=== PATIENT | female | born 1965 | race Native Hawaiian/Other Pacific Islander ===

== ENCOUNTER 2018-05-09 11:02 | Emergency (ER) | payer OTHER ==
--- NOTE | 2018-05-09 11:06 | Emergency Department Report ---
Blank Doc - Documentation Documentation: This is a 53-year-old female that presents with right lower abdominal pain with nausea x1 day. Denies any vomiting. This initial assessment/diagnostic orders/clinical plan/treatment(s) is/are subject to change based on patient's health status, clinical progression and re-assessment by fellow clinical providers in the ED. Further treatment and workup at subsequent clinical providers discretion. Patient/guardians urged not to elope from the ED as their condition may be serious if not clinically assessed and managed. Initial orders include: 1- Patient sent to [facility] for further evaluation and treatment 2- labs 3- ua
[2018-05-09 11:14] VITALS: BP 153/85
[2018-05-09 11:34] LABS: Basophils % (Auto) 0.3 % (0.0-1.8); Eosinophils # (Auto) 0.1 K/mm3 (0.0-0.4); Eosinophils % (Auto) 1.4 % (0.0-4.3); Hematocrit 33.6 % (30.3-42.9); Lymphocytes # (Auto) 1.7 K/mm3 (1.2-5.4); Lymphocytes % (Auto) 37.3 % (13.4-35.0); Mean Corpuscular HGB Conc 33 % (30-34); Mean Corpuscular Volume 75 fl (79-97); Monocytes # (Auto) 0.3 K/mm3 (0.0-0.8); Monocytes % (Auto) 7.3 % (0.0-7.3); Platelet Count 392 K/mm3 (140-440); Red Blood Count 4.46 M/mm3 (3.65-5.03); Red Cell Distribution Width 17.9 % (13.2-15.2)
[2018-05-09 11:55] LABS: Alanine Aminotransferase 57 units/L (7-56); BUN/Creatinine Ratio 35; Bilirubin,Direct < 0.2 mg/dL (0-0.2); Blood Urea Nitrogen 21 mg/dL (7-17); Calcium 9.8 mg/dL (8.4-10.2); Hemolysis Index 6
[2018-05-09 12:05] LABS: Bilirubin,Urine NEG (Negative); Blood,Urine NEG (Negative); Color,Urine Yellow (Yellow); Mucus,Urine FEW /HPF; Protein,Urine <15 mg/dL mg/dL (Negative); Urobilinogen,Urine < 2.0 mg/dL (<2.0)
--- NOTE | 2018-05-09 12:11 | XRay Report ---
LEFT ELBOW, 3 views: History: left elbow pain. Transverse fracture through the radial neck is identified with minimal displacement. No obvious extension of fracture line the radial head is identified. The proximal ulna and distal humerus are intact. No joint pathology is appreciated. There is however a 2 mm calcification which may be within the joint space on the lateral image. A moderate joint effusion is identified. IMPRESSION: Left radial neck fracture.
[2018-05-09] MEDS ORDERED: NORCO 5/325 PO ONE (12:32)
--- NOTE | 2018-05-09 12:42 | Emergency Department Report ---
ED Fall HPI - General Chief Complaint: Abdominal Pain Stated Complaint: LFT HAND INJURY/STOMACH PAIN Time Seen by Provider: 05/09/18 11:04 Source: patient Mode of arrival: Ambulatory - History of Present Illness MD Complaint: fall -: Last night Fall From: standing Place Fall Occurred: home Loss of Consciousness: none Prolonged Down Time?: no, yes Location - Extremities: Left: Elbow, Forearm Severity: moderate Quality: sharp Context: tripped/slipped Associated Symptoms: abdominal pain - Related Data Previous Rx's Medication Instructions Recorded Last Taken Type Famotidine 20 mg PO BID 10 Days #20 tablet 05/09/18 Unknown Rx HYDROcodone/APAP 5-325 [[place] 1 each PO Q6HR PRN #15 tablet 05/09/18 Unknown Rx 5/325] Allergies Allergy/AdvReac Type Severity Reaction Status Date / Time Penicillins Allergy Hives Verified 05/09/18 11:05 Sulfa (Sulfonamide Allergy Hives Verified 05/09/18 11:05 Antibiotics) ED Review of Systems ROS: Stated complaint: LFT HAND INJURY/STOMACH PAIN Other details as noted in HPI Comment: All other systems reviewed and negative Constitutional: denies: fever, malaise Respiratory: denies: cough Cardiovascular: denies: chest pain ED Past Medical Hx - Past Medical History Previous Medical History?: No - Surgical History Past Surgical History?: Yes Hx Cholecystectomy: Yes - Social History Smoking Status: Never Smoker Substance Use Type: None - Medications Home Medications: Home Medications Medication Instructions Recorded Confirmed Last Taken Type Famotidine 20 mg PO BID 10 Days #20 tablet 05/09/18 Unknown Rx HYDROcodone/APAP 5-325 [[place] 1 each PO Q6HR PRN #15 tablet 05/09/18 Unknown Rx 5/325] ED Physical Exam - General Limitations: No Limitations General appearance: alert, in no apparent distress - Head Head exam: Present: atraumatic, normocephalic - Eye Eye exam: Present: normal appearance - ENT ENT exam: Present: mucous membranes moist - Neck Neck exam: Present: normal inspection - Respiratory Respiratory exam: Present: normal lung sounds bilaterally. Absent: respiratory distress, wheezes, rales - Cardiovascular Cardiovascular Exam: Present: regular rate, normal rhythm, normal heart sounds. Absent: systolic murmur, diastolic murmur, rubs, gallop - GI/Abdominal GI/Abdominal exam: Present: soft, normal bowel sounds. Absent: distended, tenderness, guarding, rebound - Extremities Exam Extremities exam: Present: normal inspection, full ROM, tenderness (left elbow), other (soft forearm compartments) - Back Exam Back exam: Present: normal inspection - Neurological Exam Neurological exam: Present: alert, oriented X3 - Psychiatric Psychiatric exam: Present: normal affect, normal mood - Skin Skin exam: Present: warm, dry, intact, normal color. Absent: rash ED Course Vital Signs 05/09/18 11:11 Temperature 97.8 F Pulse Rate 78 Respiratory 16 Rate Blood Pressure 153/85 Blood Pressure 153/85 [Left] O2 Sat by Pulse 99 Oximetry ED Medical Decision Making - Lab Data Result diagrams: 05/09/18 11:14 05/09/18 11:14 Laboratory Results - last 72 hr 05/09/18 05/09/18 05/09/18 11:14 11:14 11:27 WBC 4.6 RBC 4.46 Hgb 11.0 Hct 33.6 MCV 75 L MCH 25 L MCHC 33 RDW 17.9 H Plt Count 392 Lymph % (Auto) 37.3 H [place] % (Auto) 7.3 Eos % (Auto) 1.4 Baso % (Auto) 0.3 Lymph # 1.7 [place] # 0.3 Eos # 0.1 Baso # 0.0 Seg Neutrophils % 53.7 Seg Neutrophils # 2.5 Sodium 139 Potassium 3.5 L Chloride 100.9 Carbon Dioxide 28 Anion Gap 14 BUN 21 H Creatinine 0.6 L Estimated GFR > 60 BUN/Creatinine Ratio 35 Glucose 96 Calcium 9.8 Total Bilirubin 0.20 Direct Bilirubin < 0.2 AST 25 ALT 57 H Alkaline Phosphatase 102 Total Protein 8.1 Albumin 4.0 Albumin/Globulin Ratio 1.0 Lipase 55 Urine Color Yellow Urine Turbidity Clear Urine pH 6.0 Ur Specific [place] 1.020 Urine Protein <15 mg/dl Urine Glucose (UA) Neg Urine Ketones Neg Urine Blood Neg Urine Nitrite Neg Urine Bilirubin Neg Urine Urobilinogen < 2.0 Ur Leukocyte Esterase Tr Urine WBC (Auto) 2.0 Urine RBC (Auto) 1.0 U Epithel Cells (Auto) 9.0 Urine Mucus Few - Medical Decision Making 1. fall at home, Left radial neck fracture according to my review of images and radiology report, no displacement, should do well with sling provided, rx: norco, recommended orthopedic surgery f/u one week 2. abdominal pain epigastric with n/v/d DDX: PUD, gastroenteritis, with hx of cholecystectomy biliary colic not likely, do not suspect ACS from today's presentation rx: pepcid Labs reviewed within normal limits. Critical care attestation.: If time is entered above; I have spent that time in minutes in the direct care of this critically ill patient, excluding procedure time. ED Disposition Clinical Impression: Fracture of radial neck, left, closed, Epigastric abdominal pain Disposition: TO HOME OR SELFCARE Is pt being admited?: No Does the pt Need Aspirin: No Condition: Stable Instructions: Abdominal Pain (ED), Elbow Fracture in Adults (ED) Additional Instructions: You have an elbow fracture called a radial neck fracture which is treated with a sling. Prescriptions: Famotidine 20 mg PO BID 10 Days #20 tablet HYDROcodone/APAP 5-325 [[place] 5/325] 1 each PO Q6HR PRN #15 tablet PRN Reason: Pain Referrals: JOSE VERONICA MD [Staff Physician] - 3-5 Days Print Language: CYPRIOT
== END 2018-05-09 13:11 | disposition home or self-care (01) ==
LOC: ED 11:02
DX: S52.132A Displaced fracture of neck of left radius, initial encounter for closed fracture (principal); R10.13 Epigastric pain; Z90.49 Acquired absence of other specified parts of digestive tract; Z88.0 Allergy status to penicillin; Z88.2 Allergy status to sulfonamides; W01.0XXA Fall on same level from slipping, tripping and stumbling without subsequent striking against object, initial encounter; Y93.89 Activity, other specified; Y92.009 Unspecified place in unspecified non-institutional (private) residence as the place of occurrence of the external cause; Y99.8 Other external cause status
CPT/HCPCS: 36415; 80048; 80076; 81001; 83690; 85025

== ENCOUNTER 2018-05-19 22:56 | Emergency (ER) | payer OTHER ==
[2018-05-19 23:38] LABS: Basophils % (Auto) 0.2 % (0.0-1.8); Eosinophils % (Auto) 0.8 % (0.0-4.3); Hematocrit 34.8 % (30.3-42.9); Hemoglobin 11.1 gm/dl (10.1-14.3); Lymphocytes # (Auto) 1.4 K/mm3 (1.2-5.4); Mean Corpuscular HGB Conc 32 % (30-34); Mean Corpuscular Volume 76 fl (79-97); Monocytes # (Auto) 0.3 K/mm3 (0.0-0.8); Monocytes % (Auto) 5.8 % (0.0-7.3); Platelet Count 443 K/mm3 (140-440); Red Blood Count 4.57 M/mm3 (3.65-5.03); Red Cell Distribution Width 17.9 % (13.2-15.2)
[2018-05-19 23:58] LABS: Alanine Aminotransferase 30 units/L (7-56); Albumin 3.8 g/dL (3.9-5); BUN/Creatinine Ratio 27; Blood Urea Nitrogen 19 mg/dL (7-17); Calcium 9.5 mg/dL (8.4-10.2); Hemolysis Index 5
[2018-05-20] MEDS ORDERED: DECADRON PO ONE (01:35)
[2018-05-20] MEDS ORDERED: CLEOCIN IM STA (01:37)
--- NOTE | 2018-05-20 02:51 | Emergency Department Report ---
- General Chief Complaint: Nausea/Vomiting/Diarrhea Stated Complaint: CHEST PAIN NVD Time Seen by Provider: 05/20/18 00:46 Source: patient Mode of arrival: Ambulatory Limitations: No Limitations - History of Present Illness MD Complaint: cough, sore throat, rhinorrhea, nasal congestion -: Gradual, days(s) (3) Quality: dull, aching Consistency: constant Improves With: nothing Worsens With: nothing Context: sick contacts Associated Symptoms: chills, myalgias, rhinorrhea, nasal congestion, sore throat, cough. denies: stiff neck, diarrhea, dysuria, rash, confusion, right sweats, weight loss, epistaxis, hoarseness - Related Data Previous Rx's Medication Instructions Recorded Last Taken Type Famotidine 20 mg PO BID 10 Days #20 tablet 05/09/18 Unknown Rx HYDROcodone/APAP 5-325 [[place] 1 each PO Q6HR PRN #15 tablet 05/09/18 Unknown Rx 5/325] Chlorhexidine Mouthwash [Peridex] 15 ml MM BID #473 bottle 05/20/18 Unknown Rx Clindamycin HCl [Clindamycin Oral] 75 mg PO TID #30 capsule 05/20/18 Unknown Rx guaiFENesin/CODEINE [Robitussin AC] 5 ml PO Q6H PRN #120 ml 05/20/18 Unknown Rx Allergies Allergy/AdvReac Type Severity Reaction Status Date / Time Penicillins Allergy Hives Verified 05/09/18 11:05 Sulfa (Sulfonamide Allergy Hives Verified 05/09/18 11:05 Antibiotics) ED Review of Systems ROS: Stated complaint: CHEST PAIN NVD Other details as noted in HPI Constitutional: denies: chills, fever Eyes: denies: eye pain, eye discharge, vision change ENT: throat pain. denies: ear pain Respiratory: cough. denies: shortness of breath, wheezing Cardiovascular: denies: chest pain, palpitations Endocrine: no symptoms reported Gastrointestinal: denies: abdominal pain, nausea, diarrhea Genitourinary: denies: urgency, dysuria, discharge Musculoskeletal: denies: back pain, joint swelling, arthralgia Skin: denies: rash, lesions Neurological: denies: headache, weakness, paresthesias Psychiatric: denies: anxiety, depression Hematological/Lymphatic: denies: easy bleeding, easy bruising ED Past Medical Hx - Past Medical History Hx Hypertension: Yes - Surgical History Hx Cholecystectomy: Yes Additional Surgical History: C-sections X10. - Social History Smoking Status: Never Smoker Substance Use Type: None - Medications Home Medications: Home Medications Medication Instructions Recorded Confirmed Last Taken Type Famotidine 20 mg PO BID 10 Days #20 tablet 05/09/18 Unknown Rx HYDROcodone/APAP 5-325 [[place] 1 each PO Q6HR PRN #15 tablet 05/09/18 Unknown Rx 5/325] Chlorhexidine Mouthwash [Peridex] 15 ml MM BID #473 bottle 05/20/18 Unknown Rx Clindamycin HCl [Clindamycin Oral] 75 mg PO TID #30 capsule 05/20/18 Unknown Rx guaiFENesin/CODEINE [Robitussin AC] 5 ml PO Q6H PRN #120 ml 05/20/18 Unknown Rx ED Physical Exam - General Limitations: No Limitations General appearance: alert, in no apparent distress - Head Head exam: Present: atraumatic, normocephalic - Eye Eye exam: Present: normal appearance, EOMI Pupils: Present: normal accommodation - ENT ENT exam: Present: normal exam, mucous membranes moist, other (current extremity is swollen with exudate noted. Bilateral nasal congestion with some sinus tenderness to percussion. There is some lymphadenopathy noted to the right side.) - Neck Neck exam: Present: normal inspection, tenderness, lymphadenopathy - Respiratory Respiratory exam: Present: normal lung sounds bilaterally. Absent: respiratory distress - Cardiovascular Cardiovascular Exam: Present: regular rate, normal rhythm. Absent: systolic murmur, diastolic murmur, rubs, gallop - GI/Abdominal GI/Abdominal exam: Present: soft, normal bowel sounds - Extremities Exam Extremities exam: Present: normal inspection, full ROM, normal capillary refill - Back Exam Back exam: Present: normal inspection, full ROM. Absent: CVA tenderness (R), CVA tenderness (L), muscle spasm - Neurological Exam Neurological exam: Present: alert, oriented X3 - Psychiatric Psychiatric exam: Present: normal affect, normal mood - Skin Skin exam: Present: warm, dry, intact, normal color. Absent: rash ED Course Vital Signs 05/19/18 05/19/18 23:02 23:09 Temperature 97.8 F 97.8 F Pulse Rate 92 H 85 Respiratory 18 18 Rate Blood Pressure 153/96 153/96 O2 Sat by Pulse 99 100 Oximetry ED Medical Decision Making - Lab Data Result diagrams: 05/19/18 23:25 05/19/18 23:25 Critical care attestation.: If time is entered above; I have spent that time in minutes in the direct care of this critically ill patient, excluding procedure time. ED Disposition Clinical Impression: Myalgia, Pharyngitis Disposition: DC-01 TO HOME OR SELFCARE Is pt being admited?: No Does the pt Need Aspirin: No Condition: Stable Instructions: Pharyngitis (ED) Prescriptions: Clindamycin HCl [Clindamycin Oral] 75 mg PO TID #30 capsule Chlorhexidine Mouthwash [Peridex] 15 ml MM BID #473 bottle guaiFENesin/CODEINE [Robitussin AC] 5 ml PO Q6H PRN #120 ml PRN Reason: Cough Referrals: FRITZ PENNY MD [Primary Care Provider] - 3-5 Days
[2018-05-20] MEDS ORDERED: IBUPROFEN PO ONE (03:06)
[2018-05-20] MEDS ORDERED: IBUPROFEN ONE (03:08)
[2018-05-20 03:41] VITALS: BP 140/77
== END 2018-05-20 03:11 | disposition home or self-care (01) ==
LOC: ED 22:56
DX: J02.9 Acute pharyngitis, unspecified (principal); M79.18 Myalgia, other site; I10 Essential (primary) hypertension; Z90.49 Acquired absence of other specified parts of digestive tract; Z88.0 Allergy status to penicillin; Z88.2 Allergy status to sulfonamides
CPT/HCPCS: 36415; 80053; 85025; 96372; 99283; J1100

== ENCOUNTER 2018-07-15 23:01 | Emergency (ER) | payer OTHER ==
[2018-07-15 23:08] VITALS: BP 150/83
--- NOTE | 2018-07-16 03:35 | Emergency Department Report ---
ED Rash HPI - HPI Chief Complaint: Skin Rash Stated Complaint: ALLERGIC REACTION Time Seen by Provider: 07/16/18 03:00 Duration: 1 WEEK Location: Chest Suspected Cause: Unknown Rash Symptoms: Yes Itching, No Facial Swelling, No Tongue/Oral Swelling, No Breathing Difficulties, No Choking Sensation, No Wheezing/Dyspnea, No Peeling, No Blistering, No Fever, No Lightheaded, No Malaise, No Myalgias Severity: moderate Other History: Patient is a 53-year-old female with a history of hypertension who presents to the ED with complaint of acute onset persistent itchy erythematous maculopapular rash on the chest wall under the breasts for the last 1 week. Patient states that the rash is status pending was her abd omen. Patient states that the itching, burning sensation and pain have worsened in the last 2 days. Patient denies fever, chills, nausea, vomiting, dizziness, abdominal pain, headache or cough. ED Review of Systems ROS: Stated complaint: ALLERGIC REACTION Other details as noted in HPI Comment: All other systems reviewed and negative Constitutional: no symptoms reported, see HPI. denies: diaphoresis, fever, malaise Eyes: denies: eye discharge, vision change ENT: denies: dental pain, hearing loss Respiratory: see HPI. denies: no symptoms reported, cough, orthopnea, shortness of breath, SOB with exertion, SOB at rest Cardiovascular: as per HPI. denies: chest pain, orthopnea, edema, syncope Endocrine: no symptoms reported, see HPI. denies: excessive sweating, flushing, intolerance to cold, intolerance to heat, increased hunger, increased thirst, increased urine, unexplained weight loss Gastrointestinal: as per HPI. denies: abdominal pain, nausea, vomiting, diarrhea, constipation, melena Genitourinary: as per HPI. denies: urgency, dysuria, frequency, hematuria, discharge Musculoskeletal: as per HPI. denies: back pain Skin: rash (Erythematous maculopapular rashes on chest wall below the breasts), change in color, pruritus Neurological: as per HPI. denies: headache, weakness, numbness, paresthesias, confusion, abnormal gait, vertigo Psychiatric: as per HPI Hematological/Lymphatic: as per HPI ED Past Medical Hx - Past Medical History Previous Medical History?: Yes Hx Hypertension: Yes - Surgical History Past Surgical History?: Yes Hx Cholecystectomy: Yes Additional Surgical History: C-sections X10. - Social History Smoking Status: Never Smoker Substance Use Type: None - Medications Home Medications: Home Medications Medication Instructions Recorded Confirmed Last Taken Type Famotidine 20 mg PO BID 10 Days #20 tablet 05/09/18 Unknown Rx HYDROcodone/APAP 5-325 [[place] 1 each PO Q6HR PRN #15 tablet 05/09/18 Unknown Rx 5/325] Chlorhexidine Mouthwash [Peridex] 15 ml MM BID #473 bottle 05/20/18 Unknown Rx Clindamycin HCl [Clindamycin Oral] 75 mg PO TID #30 capsule 05/20/18 Unknown Rx guaiFENesin/CODEINE [Robitussin AC] 5 ml PO Q6H PRN #120 ml 05/20/18 Unknown Rx Griseofulvin Ultramicrosize 250 mg PO DAILY #14 tablet 07/16/18 Unknown Rx Ibuprofen [Motrin] 600 mg PO Q8H PRN #20 tablet 07/16/18 Unknown Rx Nystatin Oint [Mycostatin Oint] 1 applicatio TP BID #1 tube 07/16/18 Unknown Rx diphenhydrAMINE [Benadryl CAP] 25 mg PO Q6HR PRN #30 capsule 07/16/18 Unknown Rx Rash Exam - Exam General: Vital signs noted. No distress. Alert and acting appropriately. HEENT: No Periorbital Edema, No Conjuctival Injection, No Chemosis, No Perioral Edema, No Tongue Edema, No Uvular Edema, No Compromised Airway, No Drooling Lungs: Yes Good Air Exchange, No Wheezes, No [place], No Stridor, No Cough, No Labored Respirations, No Retractions, No Use of Accessory Muscles, No Other Abnormal Lung Sounds Heart: Yes Regular, No Murmur Skin: Yes Maculopapular Rash (anterior chest wall below the breasts), Yes Tenderness, Yes Erythema, No Urticarial Rash, No Morbilliform rash, No Bulla(e), No Excoriations, No Weeping, No Edema, No Encrustations, No Other Other: Positive: Abdomen Normal, Neurologic Normal, Musculoskeletal Normal ED Course Vital Signs 07/15/18 07/15/18 23:04 23:08 Temperature 97.7 F 97.7 F Pulse Rate 80 78 Respiratory 18 18 Rate Blood Pressure 150/83 150/83 O2 Sat by Pulse 99 99 Oximetry - Reevaluation(s) Reevaluation #1: 07/16/18 03:37 Patient is alert and oriented 3 and is not in distress with normal vital signs. Patient was discharged home on medications and advised to follow-up with her primary care physician in 7-10 days for reevaluation. Patient advised to return to the ED immediately if symptoms get worse or if she developed severe right upper quadrant pain. ED Medical Decision Making - Medical Decision Making Patient is alert and oriented 3 and is not in distress with normal vital signs. Based on the physical exam findings, the patient's symptoms are likely due to tinea corporis which has been causing the itching and is currently spreading aggressively. Patient was discharged home on medications and advised to follow- up with her primary care physician in 7-10 days for reevaluation. Patient advised to return to the ED immediately if symptoms get worse or if she developed severe right upper quadrant pain. - Differential Diagnosis Tinea corporis, Itching, dermatitis, allergic reaction, cellulitis Critical care attestation.: If time is entered above; I have spent that time in minutes in the direct care of this critically ill patient, excluding procedure time. ED Disposition Clinical Impression: Tinea corporis, Itching with irritation Disposition: DC-01 TO HOME OR SELFCARE Is pt being admited?: No Does the pt Need Aspirin: No Condition: Stable Instructions: Tinea Corporis (ED), Itchy Skin (ED) Additional Instructions: Take medications with food, drink plenty of fluids and follow up with your primary care physician in 7-10 days for reevaluation. Return to the ED immediately if symptoms get worse, especially if you develop severe right upper quadrant abdominal pain, fever, chills or nausea and vomiting. Prescriptions: diphenhydrAMINE [Benadryl CAP] 25 mg PO Q6HR PRN #30 capsule PRN Reason: Itching Griseofulvin Ultramicrosize 250 mg PO DAILY #14 tablet Ibuprofen [Motrin] 600 mg PO Q8H PRN #20 tablet PRN Reason: Pain Nystatin Oint [Mycostatin Oint] 1 applicatio TP BID #1 tube Referrals: [facility] MD CHARLIE [Primary Care Provider] - 3-5 Days Forms: Work/School Release Form(ED) Time of Disposition: 03:46 Print Language: [place]
== END 2018-07-16 03:57 | disposition home or self-care (01) ==
LOC: ED 23:01
DX: B35.4 Tinea corporis (principal); I10 Essential (primary) hypertension; Z90.49 Acquired absence of other specified parts of digestive tract; Z88.0 Allergy status to penicillin; Z88.2 Allergy status to sulfonamides

== ENCOUNTER 2018-09-10 21:52 | Emergency (ER) | payer OTHER | END 2018-09-10 22:40 | disposition left against medical advice (07) | LOC: ED 21:52 | DX: R51 Headache (principal); Z53.21 Procedure and treatment not carried out due to patient leaving prior to being seen by health care provider ==

== ENCOUNTER 2018-10-14 00:29 | Emergency (ER) | payer OTHER ==
[2018-10-14 00:51] LABS: Basophils % (Auto) 0.5 % (0.0-1.8); Hematocrit 33.1 % (30.3-42.9); Hemoglobin 10.6 gm/dl (10.1-14.3); Lymphocytes # (Auto) 1.9 K/mm3 (1.2-5.4); Lymphocytes % (Auto) 38.5 % (13.4-35.0); Mean Corpuscular HGB Conc 32 % (30-34); Mean Corpuscular Volume 72 fl (79-97); Monocytes # (Auto) 0.3 K/mm3 (0.0-0.8); Monocytes % (Auto) 5.9 % (0.0-7.3); Platelet Count 474 K/mm3 (140-440); Red Blood Count 4.58 M/mm3 (3.65-5.03); Red Cell Distribution Width 17.4 % (13.2-15.2)
[2018-10-14 01:12] LABS: Alanine Aminotransferase 26 units/L (7-56); Albumin 3.8 g/dL (3.9-5); BUN/Creatinine Ratio 23; Blood Urea Nitrogen 16 mg/dL (7-17); Calcium 9.5 mg/dL (8.4-10.2); Hemolysis Index 3
[2018-10-14] MEDS ORDERED: NACL 0.9% 1000 ML 1,000 ML IV ONE (01:40)
[2018-10-14] MEDS ORDERED: ZOFRAN IV ONE (01:40)
[2018-10-14] MEDS ORDERED: K-DUR PO ONE (01:40)
[2018-10-14] MEDS ORDERED: TORADOL IV ONE (01:40)
--- NOTE | 2018-10-14 03:39 | Cat Scan Report ---
CT ABDOMEN AND PELVIS WITH CONTRAST HISTORY: LOWER ABDOMINAL PAIN X 1 WEEK. WEAKNESS. NAUSEA AND VOMITING.. Generalized lower abdominal pain for the past week COMPARISON: None. TECHNIQUE: CT images of the abdomen and pelvis were obtained following administration of intravenous contrast. All CT scans at this location are performed using CT dose reduction for ALARA by means of automated exposure control. CONTRAST: 100 ml of intravenous contrast administered. FINDINGS: Lungs/bones: Lung bases are clear. There are degenerative changes in the spine and pelvis with no ac [place] osseous abnormality. Abdomen/pelvis: The gallbladder is surgically absent. The liver, spleen, pancreas, and adrenals appe ar unremarkable. There is a small hiatal hernia. The proximal GI tract is otherwise unremarkable. The re is a simple cyst in the lower pole the right kidney. An extrarenal pelvis is seen bilaterally. Urinary bladder and uterus appear unremarkable. There is a simple left ovarian cyst measuring 1.4 cm. No pelvic free fluid and no acute colonic abnormality identified. The appendix and terminal ileum ap pear normal. IMPRESSION: 1. No acute abnormality identified. 2. Tiny simple left ovarian cyst. Signer Name: Enmanuel Mistry MD Signed: 10/14/2018 3:34 AM Workstation Name: [id number]
--- NOTE | 2018-10-14 03:55 | Emergency Department Report ---
ED Abdominal Pain HPI - General Chief Complaint: Abdominal Pain Stated Complaint: ABD PAIN/NAUSEA/EMESIS Time Seen by Provider: 10/14/18 01:30 Source: patient Mode of arrival: Ambulatory Limitations: No Limitations - History of Present Illness Initial Comments: Patient is a 53-year-old female with a history of hypertension who presents to the ED with c/o acute onset persistent diffuse lower abdominal pain with nausea and vomiting intermittently for the last 1 week. Patient denies dyspnea, diarrhea, headache, chest pain, dysuria, hematuria, hematemesis, vision changes, vaginal bleeding, urinary frequency and urgency, vaginal discharge, low back pain, dizziness, fever and chills. MD Complaint: abdominal pain, other (nausea and vomiting) -: Sudden, week(s) (1) Location: LLQ, RLQ, suprapubic Radiation: LLQ, RLQ, suprapubic Migration to: no migration Severity: severe Severity scale (0 -10): 8 Quality: cramping, aching, sharp Consistency: constant Improves With: nothing Worsens With: nothing Associated Symptoms: denies other symptoms, nausea, vomiting. denies: diarrhea, fever, chills, constipation, dysuria, hematemesis, hematochezia, melena, hematuria, anorexia, syncope - Related Data Previous Rx's Medication Instructions Recorded Last Taken Type Famotidine 20 mg PO BID 10 Days #20 tablet 05/09/18 Unknown Rx HYDROcodone/APAP 5-325 [[place] 1 each PO Q6HR PRN #15 tablet 05/09/18 Unknown Rx 5/325] Chlorhexidine Mouthwash [Peridex] 15 ml MM BID #473 bottle 05/20/18 Unknown Rx Clindamycin HCl [Clindamycin Oral] 75 mg PO TID #30 capsule 05/20/18 Unknown Rx guaiFENesin/CODEINE [Robitussin AC] 5 ml PO Q6H PRN #120 ml 05/20/18 Unknown Rx Griseofulvin Ultramicrosize 250 mg PO DAILY #14 tablet 07/16/18 Unknown Rx Ibuprofen [Motrin] 600 mg PO Q8H PRN #20 tablet 07/16/18 Unknown Rx Nystatin Oint [Mycostatin Oint] 1 applicatio TP BID #1 tube 07/16/18 Unknown Rx diphenhydrAMINE [Benadryl CAP] 25 mg PO Q6HR PRN #30 capsule 07/16/18 Unknown Rx Dicyclomine [Bentyl] 20 mg PO Q6H PRN #24 tablet 10/14/18 Unknown Rx Docusate Sodium [Colace CAP] 100 mg PO QHS PRN #30 capsule 10/14/18 Unknown Rx Ondansetron [Zofran Odt] 4 mg PO Q6HR PRN #15 tab.rapdis 10/14/18 Unknown Rx traMADol [Ultram] 50 mg PO Q6HR PRN #15 tablet 10/14/18 Unknown Rx Allergies Allergy/AdvReac Type Severity Reaction Status Date / Time Penicillins Allergy Hives Verified 05/09/18 11:05 Sulfa (Sulfonamide Allergy Hives Verified 05/09/18 11:05 Antibiotics) ED Review of Systems ROS: Stated complaint: ABD PAIN/NAUSEA/EMESIS Other details as noted in HPI Constitutional: denies: chills, fever Eyes: denies: eye pain, eye discharge, vision change ENT: denies: ear pain, throat pain Respiratory: denies: cough, shortness of breath, wheezing Cardiovascular: denies: chest pain, palpitations Endocrine: no symptoms reported Gastrointestinal: abdominal pain, nausea, vomiting. denies: diarrhea Genitourinary: denies: urgency, dysuria, discharge Musculoskeletal: denies: back pain, joint swelling, arthralgia Skin: denies: rash, lesions Neurological: denies: headache, weakness, paresthesias Psychiatric: denies: anxiety, depression Hematological/Lymphatic: denies: easy bleeding, easy bruising ED Past Medical Hx - Past Medical History Previous Medical History?: Yes Hx Hypertension: Yes - Surgical History Past Surgical History?: Yes Hx Cholecystectomy: Yes Additional Surgical History: C-sections X10. - Social History Smoking Status: Never Smoker Substance Use Type: None - Medications Home Medications: Home Medications Medication Instructions Recorded Confirmed Last Taken Type Famotidine 20 mg PO BID 10 Days #20 tablet 05/09/18 Unknown Rx HYDROcodone/APAP 5-325 [[place] 1 each PO Q6HR PRN #15 tablet 05/09/18 Unknown Rx 5/325] Chlorhexidine Mouthwash [Peridex] 15 ml MM BID #473 bottle 05/20/18 Unknown Rx Clindamycin HCl [Clindamycin Oral] 75 mg PO TID #30 capsule 05/20/18 Unknown Rx guaiFENesin/CODEINE [Robitussin AC] 5 ml PO Q6H PRN #120 ml 05/20/18 Unknown Rx Griseofulvin Ultramicrosize 250 mg PO DAILY #14 tablet 07/16/18 Unknown Rx Ibuprofen [Motrin] 600 mg PO Q8H PRN #20 tablet 07/16/18 Unknown Rx Nystatin Oint [Mycostatin Oint] 1 applicatio TP BID #1 tube 07/16/18 Unknown Rx diphenhydrAMINE [Benadryl CAP] 25 mg PO Q6HR PRN #30 capsule 07/16/18 Unknown Rx Dicyclomine [Bentyl] 20 mg PO Q6H PRN #24 tablet 10/14/18 Unknown Rx Docusate Sodium [Colace CAP] 100 mg PO QHS PRN #30 capsule 10/14/18 Unknown Rx Ondansetron [Zofran Odt] 4 mg PO Q6HR PRN #15 tab.rapdis 10/14/18 Unknown Rx traMADol [Ultram] 50 mg PO Q6HR PRN #15 tablet 10/14/18 Unknown Rx ED Physical Exam - General Limitations: No Limitations General appearance: alert, in no apparent distress - Head Head exam: Present: atraumatic, normocephalic, normal inspection - Eye Eye exam: Present: normal appearance, PERRL, EOMI. Absent: scleral icterus, conjunctival injection, nystagmus Pupils: Present: normal accommodation - ENT ENT exam: Present: normal exam, normal orophraynx, mucous membranes moist, TM's normal bilaterally, normal external ear exam - Neck Neck exam: Present: normal inspection, full ROM. Absent: tenderness - Respiratory Respiratory exam: Present: normal lung sounds bilaterally. Absent: respiratory distress, chest wall tenderness, prolonged expiratory - Cardiovascular Cardiovascular Exam: Present: regular rate, normal rhythm, normal heart sounds. Absent: systolic murmur, diastolic murmur, rubs, gallop - GI/Abdominal GI/Abdominal exam: Present: soft, tenderness (diffuse lower abdomen), normal bowel sounds. Absent: guarding, hyperactive bowel sounds, hypoactive bowel sounds, organomegaly, bruit - Rectal Rectal exam: Present: deferred - Extremities Exam Extremities exam: Present: normal inspection, full ROM, normal capillary refill - Back Exam Back exam: Present: normal inspection, full ROM. Absent: tenderness, CVA ten derness (R), CVA tenderness (L), muscle spasm, paraspinal tenderness - Neurological Exam Neurological exam: Present: alert, oriented X3, CN II-XII intact, normal gait, reflexes normal - Psychiatric Psychiatric exam: Present: normal affect, normal mood - Skin Skin exam: Present: warm, dry, intact, normal color. Absent: rash ED Course Vital Signs 10/14/18 10/14/18 00:37 03:16 Temperature 98.9 F Pulse Rate 81 Respiratory 18 20 Rate Blood Pressure 136/84 O2 Sat by Pulse 99 Oximetry - Reevaluation(s) Reevaluation #1: 10/14/18 03:57 This is a 53-year-old female with a history of hypertension who presents to the ED with diffuse lower abdominal pain with nausea and vomiting intermittently for 1 week. In the ED, patient is alert and oriented 3 and is not in distress with normal vital signs. Lab test results were reviewed and are unremarkable except for hypokalemia. Patient was treated for pain in the ED, also given antiemetics and given Klor-Con 40 mEq by mouth 1. Abdomen pelvis CT scan with contrast shows lung bases which are clear. There are degenerative changes in the spine and pelvis with no acute osseous abnormality. Abdomen/pelvis shows gallbladder that is surgically absent. The liver, spleen, pancreas, and adrenals appear unremarkable. There is a small hiatal hernia. The proximal GI tract is otherwise unremarkable. There is a simple cyst in the lower pole the right kidney. An extrarenal pelvis is seen bilaterally. Urinary bladder and uterus appear unremarkable. There is a simple left ovarian cyst measuring 1.4 cm. No pelvic free fluid and no acute colonic abnormality identified. The appendix and terminal ileum appear normal. On reevaluation, patient's pain is well-controlled with medication as well as nausea and vomiting. Patient was discharged home on pain medications and advised to follow-up with her [employer] physician and primary care physician in 7-10 days for reevaluation or return to the ED immediately if symptoms get worse. ED Medical Decision Making - Lab Data Result diagrams: 10/14/18 00:39 10/14/18 00:39 - Radiology Data Radiology results: report reviewed, image reviewed Findings [facility] [address] [place] [address] Cat Scan Report Signed Patient: MARIA FERNANDA DOWNS R#: [id number] : 1965 Acct:[id number] Age/Sex: 53 / F ADM Date: 10/14/18 Loc: ED Attending Dr: Ordering Physician: JESSICA YANEZ Date of Service: 10/14/18 Procedure(s): CT abdomen pelvis w con Accession Number(s): [id number] cc: JESSICA YANEZ CT ABDOMEN AND PELVIS WITH CONTRAST HISTORY: LOWER ABDOMINAL PAIN X 1 WEEK. WEAKNESS. NAUSEA AND VOMITING.. Generalized lower abdominal pain for the past week COMPARISON: None. TECHNIQUE: CT images of the abdomen and pelvis were obtained following administration of intravenous contrast. All CT scans at this location are performed using CT dose reduction for ALARA by means of automated exposure control. CONTRAST: 100 ml of intravenous contrast administered. FINDINGS: Lungs/bones: Lung bases are clear. There are degenerative changes in the spine and pelvis with no acute osseous abnormality. Abdomen/pelvis: The gallbladder is surgically absent. The liver, spleen, pancreas, and adrenals appear unremarkable. There is a small hiatal hernia. The proximal GI tract is otherwise unremarkable. There is a simple cyst in the lower pole the right kidney. An extrarenal pelvis is seen bilaterally. Urinary bladder and uterus appear unremarkable. There is a simple left ovarian c yst measuring 1.4 cm. No pelvic free fluid and no acute colonic abnormality identified. The appendix and terminal ileum appear normal. IMPRESSION: 1. No acute abnormality identified. 2. Tiny simple left ovarian cyst. Signer Name: Enmanuel Mistry MD Signed: 10/14/2018 3:34 AM Workstation Name: [id number] Transcribed By: CARLEE Dictated By: Enmanuel Mistry MD Electronically Authenticated By: Enmanuel Mistry MD Signed Date/Time: 10/14/18 0334 - Medical Decision Making This is a 53-year-old female with a history of hypertension who presen ts to the ED with diffuse lower abdominal pain with nausea and vomiting intermittently for 1 week. In the ED, patient is alert and oriented 3 and is not in distress with normal vital signs. Lab test results were reviewed and are unremarkable except for hypokalemia. Patient was treated for pain in the ED, also given antiemetics and given Klor-Con 40 mEq by mouth 1. Abdomen pelvis CT scan with contrast shows lung bases which are clear. There are degenerative changes in the spine and pelvis with no acute osseous abnormality. Abdomen/pelvis shows gallbladder that is surgically absent. The liver, spleen, pancreas, and adrenals appear unremarkable. There is a small hiatal hernia. The proximal GI tract is otherwise unremarkable. There is a simple cyst in the lower pole the right kidney. An extrarenal pelvis is seen bilaterally. Urinary bladder and uterus appear unremarkable. There is a simple left ovarian cyst measuring 1.4 cm. No pelvic free fluid and no acute colonic abnormality bruno ntified. The appendix and terminal ileum appear normal. On reevaluation, patient's pain is well-controlled with medication as well as nausea and vomiting. Patient was discharged home on pain medications and advised to follow-up with her [employer] physician and primary care physician in 7-10 days for reevaluation or return to the ED immediately if symptoms get worse. - Differential Diagnosis abdominal pain, colitis, appendicitis, ovarian cyst, acute UTI Critical care attestation.: If time is entered above; I have spent that time in minutes in the direct care of this critically ill patient, excluding procedure time. ED Disposition Clinical Impression: Nausea and vomiting in adult, Left ovarian cyst Abdominal pain Qualifiers: Abdominal location: lower abdomen, unspecified Qualified Code(s): R10.30 - Lower abdominal pain, unspecified Disposition: DC-01 TO HOME OR SELFCARE Is pt being admited?: No Does the pt Need Aspirin: No Condition: Stable Instructions: Ovarian Cyst (ED), Acute Nausea and Vomiting (ED), Abdominal Pain (ED) Additional Instructions: Take medications with food, drink plenty of fluids and follow up with your primary care physician in 5-7 days for reevaluation. Return to the ED immediately if symptoms get worse. Prescriptions: Docusate Sodium [Colace CAP] 100 mg PO QHS PRN #30 capsule PRN Reason: Constipation Dicyclomine [Bentyl] 20 mg PO Q6H PRN #24 tablet PRN Reason: Pain , Severe (7-10) traMADol [Ultram] 50 mg PO Q6HR PRN #15 tablet PRN Reason: Pain Ondansetron [Zofran Odt] 4 mg PO Q6HR PRN #15 tab.rapdis PRN Reason: Nausea Referrals: CARBUCCIA,FRITZ, MD [Primary Care Provider] - 3-5 Days Forms: Work/School Release Form(ED) Time of Disposition: 04:01 Print Language: PORTUGUESE
[2018-10-14 04:52] LABS: Bilirubin,Urine NEG (Negative); Blood,Urine MOD (Negative); Color,Urine Yellow (Yellow); Mucus,Urine FEW /HPF; Protein,Urine <15 mg/dL mg/dL (Negative); Urobilinogen,Urine < 2.0 mg/dL (<2.0)
[2018-10-14 05:43] VITALS: BP 127/82
== END 2018-10-14 06:06 | disposition home or self-care (01) ==
LOC: ED 00:29
DX: N83.202 Unspecified ovarian cyst, left side (principal); R11.2 Nausea with vomiting, unspecified; I10 Essential (primary) hypertension; Z88.0 Allergy status to penicillin; Z88.2 Allergy status to sulfonamides; Z79.1 Long term (current) use of non-steroidal anti-inflammatories (NSAID); Z79.899 Other long term (current) drug therapy; Z90.49 Acquired absence of other specified parts of digestive tract
CPT/HCPCS: 36415; 74177; 80053; 81001; 83690; 84703; 85025; 96361; 96374; 96375; 99284; J1885; J2405; J7030; Q9967

== ENCOUNTER 2018-12-11 00:08 | Emergency (ER) | payer OTHER ==
[2018-12-11 01:02] VITALS: BP 145/72
== END 2018-12-11 04:28 | disposition left against medical advice (07) ==
LOC: ED 00:08
DX: R51 Headache (principal); Z53.21 Procedure and treatment not carried out due to patient leaving prior to being seen by health care provider

== ENCOUNTER 2019-02-16 21:48 | Emergency (ER) | payer OTHER ==
[2019-02-16 22:08] VITALS: BP 133/77
--- NOTE | 2019-02-16 22:12 | Event Note ---
ED Screening Note Date of service: 02/16/19 Time: 22:09 ED Screening Note: This is a 53 y.o. F. that presents to the ER with headache, left elbow pain, and left sided rib pain for 4 days. Patient went to PCP in [place] last week. Reports nonproductive cough. This initial assessment/diagnostic orders/clinical plan/treatment(s) is/are subject to change based on patients health status, clinical progression and re- assessment by fellow clinical providers in the ED. Further treatment and workup at subsequent clinical providers discretion. Patient/guardian urged not to elope from the ED as their condition may be serious if not clinically assessed and managed. Initial orders include:
--- NOTE | 2019-02-16 23:31 | Emergency Department Report ---
Chief Complaint: Upper Respiratory Infection Stated Complaint: CAGLE/SIDE PAIN/COUGH Time Seen by Provider: 02/16/19 22:08 - HPI History of Present Illness: Patient is a 53-year-old female presents emergency room with complaints of URI symptoms that began 4 days ago. She has associated dry cough, headache, rhinorrhea. She states that she also has left elbow pain and left rib pain. She denies any fall or injury. She denies any fever, shortness of breath, chest pain. She states that she went to her primary care doctor last week for her rib discomfort and had her urine tested which she states was normal. She has a past medical history of hypertension. She states she has an allergy to penicillin and sulfa. Vitals are normal No tachycardia, afebrile Lung sounds are clear bilaterally without wheezing, rales, rhonchi, stridor Normal oropharynx normal TMs and canals bilaterally No tenderness to palpation of the left elbow, full range of motion of the left elbow, no edema, no erythema, no increased warmth, no deformity neurovascularly intact No tenderness to palpation of the left ribs, no crepitus, no ecchymosis, no deformity Discussed supportive care and symptomatic treatment with patient discussed over the counter medications with pt medical screening exam performed no medical emergency at this time will have pt follow up with her primary care doctor - Exam Vital Signs: Vital Signs 02/16/19 02/16/19 21:53 22:09 Temperature 98.4 F 98.4 F Pulse Rate 89 87 Respiratory 18 18 Rate Blood Pressure 133/77 133/77 O2 Sat by Pulse 100 100 Oximetry MSE screening note: Focused history and physical exam performed. ED Disposition for MSE Clinical Impression: Viral URI with cough, Left elbow pain, Rib pain on left side Disposition: Z- MED SCREENING EXAM-LEFT Is pt being admited?: No Does the pt Need Aspirin: No Condition: Stable Instructions: Viral Syndrome (ED), Arthralgia (ED) Additional Instructions: May take Flonase, Zyrtec, Robitussin [id number] as needed for your symptoms. May take Tylenol or ibuprofen for any discomfort. May use ice pack, heating pad, rest, epsom salt bath. Follow-up with your primary care doctor in the next 2-3 days. Return to the emergency room for any new or worsening symptoms. Referrals: your, primary care doctor [Other] - 2-3 Days Forms: Work/School Release Form(ED) Time of Disposition: 23:31 Print Language: SRI LANKAN
== END 2019-02-17 00:05 | disposition left against medical advice (07) ==
LOC: ED 21:48
DX: J06.9 Acute upper respiratory infection, unspecified (principal)
CPT/HCPCS: 99282

== ENCOUNTER 2019-03-17 23:32 | Emergency (ER) | payer OTHER ==
[2019-03-17 23:51] VITALS: BP 154/80
--- NOTE | 2019-03-18 03:44 | Emergency Department Report ---
HPI - General Chief Complaint: Extremity Injury, Upper Time Seen by Provider: 03/18/19 03:20 - HPI HPI: 54-year-old female presents to the emergency department with the complaint of pain to the left arm from the wrist to the elbow that has been g oing on intermittently over the past year but has worsened over the past few days. The patient states that she lifts heavy objects at work and sometimes this appears to exacerbate this pain. She has tried some [id number] pain medication without any relief. She is right-hand dominant. ED Past Medical Hx - Past Medical History Hx Hypertension: Yes - Surgical History Hx Cholecystectomy: Yes Additional Surgical History: C-sections X10. - Social History Smoking Status: Never Smoker Substance Use Type: None - Medications Home Medications: Home Medications Medication Instructions Recorded Confirmed Last Taken Type Famotidine 20 mg PO BID 10 Days #20 tablet 05/09/18 Unknown Rx HYDROcodone/APAP 5-325 [[place] 1 each PO Q6HR PRN #15 tablet 05/09/18 Unknown Rx 5/325] Chlorhexidine Mouthwash [Peridex] 15 ml MM BID #473 bottle 05/20/18 Unknown Rx Clindamycin HCl [Clindamycin Oral] 75 mg PO TID #30 capsule 05/20/18 Unknown Rx guaiFENesin/CODEINE [Robitussin AC] 5 ml PO Q6H PRN #120 ml 05/20/18 Unknown Rx Griseofulvin Ultramicrosize 250 mg PO DAILY #14 tablet 07/16/18 Unknown Rx Ibuprofen [Motrin] 600 mg PO Q8H PRN #20 tablet 07/16/18 Unknown Rx Nystatin Oint [Mycostatin Oint] 1 applicatio TP BID #1 tube 07/16/18 Unknown Rx diphenhydrAMINE [Benadryl CAP] 25 mg PO Q6HR PRN #30 capsule 07/16/18 Unknown Rx Dicyclomine [Bentyl] 20 mg PO Q6H PRN #24 tablet 10/14/18 Unknown Rx Docusate Sodium [Colace CAP] 100 mg PO QHS PRN #30 capsule 10/14/18 Unknown Rx Ondansetron [Zofran Odt] 4 mg PO Q6HR PRN #15 tab.rapdis 10/14/18 Unknown Rx traMADoL [Ultram] 50 mg PO Q6HR PRN #15 tablet 10/14/18 Unknown Rx Ibuprofen [Motrin 800 MG tab] 800 mg PO Q8HR PRN #20 tablet 03/18/19 Unknown Rx ED Review of Systems ROS: Stated complaint: LT ARM PAIN Other details as noted in HPI Comment: All other systems reviewed and negative Constitutional: denies: chills, fever Respiratory: denies: cough, shortness of breath Cardiovascular: denies: chest pain, palpitations Gastrointestinal: denies: abdominal pain, vomiting Musculoskeletal: arthralgia. denies: joint swelling Physical Exam - Physical Exam Vital Signs: Vital Signs 03/17/19 03/17/19 23:37 23:48 Temperature 97.6 F 97.6 F Pulse Rate 84 81 Respiratory 18 16 Rate Blood Pressure 154/86 154/80 O2 Sat by Pulse 96 98 Oximetry Physical Exam: GENERAL: The patient is well-developed well-nourished. HEENT: Normocephalic. Atraumatic. Patient has moist mucous membranes. EYES: Extraocular motions are intact. NECK: Supple. Trachea is midline SKIN: Skin is warm and dry. NEURO: The patient is awake, alert, and oriented. The patient is cooperative. The patient has no focal neurologic deficits. Normal speech. MUSCULOSKELETAL: There is tenderness to palpation to the volar left wrist and distal forearm, but no obvious deformity. There is no limitation range of motion. Radial pulse +2 over 4 to the affected left wrist. ED Course Vital Signs 03/17/19 03/17/19 23:37 23:48 Temperature 97.6 F 97.6 F Pulse Rate 84 81 Respiratory 18 16 Rate Blood Pressure 154/86 154/80 O2 Sat by Pulse 96 98 Oximetry ED Medical Decision Making - Radiology Data Radiology results: report reviewed, image reviewed interpreted by me: X-ray of the left forearm does not show any acute fracture, dislocation, or any acute process. LEFT FOREARM 2 VIEWS INDICATION / CLINICAL INFORMATION: Left forearm pain for 3 days. COMPARISON: None available. FINDINGS: BONES / JOINT(S): There is an old or subacute, ununited fracture of the left radial head/neck. There are mild degenerative changes involving the elbow. SOFT TISSUES: No significant abnormality. ADDITIONAL FINDINGS: None. - Medical Decision Making This patient presents with some pain to the left wrist and distal forearm. Overall this is been going on for one year intermittently but worsened over the past few days. She is neurovascularly intact. Full range of motion. No rash, swelling or obvious deformities. X-ray of the left forearm shows an old or subacute proximal radial fracture that is ununited. It is not likely that this is the cause of her distal forearm and wrist pain. The patient has been placed in a wrist splint and given a referral for orthopedist. This could be tendinitis, carpal tunnel, muscle strain, versus other. Patient was given a prescription for anti-inflammatories. She kept requesting tramadol. I checked the [facility] prescription monitoring system and the patient has multiple filled prescriptions for tramadol including on March 07 in which she filled a 30 day supply. She was given 1 tramadol in the emergency department for her pain but was told she would not receive any narcotic prescription. Her vital signs were stable throughout her ED course. She was instructed to return to the emergency Department with any worsening of her symptoms with any acute distress. - Differential Diagnosis carpal tunnel, tendinitis, muscle strain, gout Critical Care Time: No Critical care attestation.: If time is entered above; I have spent that time in minutes in the direct care of this critically ill patient, excluding procedure time. ED Disposition Clinical Impression: Left wrist pain, Left forearm pain Disposition: TO HOME OR SELFCARE Is pt being admited?: No Condition: Stable Instructions: Carpal Tunnel Syndrome (ED), Arthralgia (ED) Additional Instructions: Please follow up with your primary care physician in the next few days. I am giving you a referral for a local orthopedist, Dr. Mahoney, to follow up regarding your forearm and wrist pain. Return to the emergency Department with any worsening of your symptoms or any acute distress. Prescriptions: Ibuprofen [Motrin 800 MG tab] 800 mg PO Q8HR PRN #20 tablet PRN Reason: Pain , Severe (7-10) Referrals: JOSE MAHONEY MD [Staff Physician] - 2-3 Days Forms: Accompanied Note, Work/School Release Form(ED) Time of Disposition: 04:17
--- NOTE | 2019-03-18 04:10 | XRay Report ---
LEFT FOREARM 2 VIEWS INDICATION / CLINICAL INFORMATION: Left forearm pain for 3 days. COMPARISON: None available. FINDINGS: BONES / JOINT(S): There is an old or subacute, ununited fracture of the left radial head/neck. There are mild degenerative changes involving the elbow. SOFT TISSUES: No significant abnormality. ADDITIONAL FINDINGS: None. Signer Name: Arslan Rahman MD Signed: 03/18/2019 4:06 AM Workstation Name: [id number]
[2019-03-18] MEDS ORDERED: traMADol 50 MG TAB PO ONE (04:15)
[2019-03-18] MEDS ORDERED: traMADol 50 MG TAB ONE (04:17)
== END 2019-03-18 04:43 | disposition home or self-care (01) ==
LOC: ED 23:32
DX: M25.532 Pain in left wrist (principal); M79.632 Pain in left forearm; Z88.2 Allergy status to sulfonamides; Z88.0 Allergy status to penicillin; I10 Essential (primary) hypertension; Z90.49 Acquired absence of other specified parts of digestive tract; Z79.899 Other long term (current) drug therapy

== ENCOUNTER 2019-05-11 22:36 | Emergency (ER) | payer OTHER ==
--- NOTE | 2019-05-12 00:24 | XRay Report ---
RIGHT SHOULDER, 3 VIEWS INDICATION / CLINICAL INFORMATION: right shoulder pain. COMPARISON: None available. FINDINGS: The distal portion of the right clavicle is absent. There is moderate degenerative change in the bradley ohumeral joint. I do not see fracture or dislocation. No soft tissue calcification is noted. IMPRESSION: 1. No acute fracture or dislocation. 2. Moderate degenerative changes are noted within the glenohumeral joint. 3. Absence of the distal right clavicle. Signer Name: Ruth Gonzales MD Signed: 05/12/2019 12:19 AM Workstation Name: [id number]
[2019-05-12] MEDS ORDERED: KETOROLAC 30 MG/1 ML INJ IM ONE (02:15)
[2019-05-12] MEDS ORDERED: ONDANSETRON 4 MG ODT TAB PO ONE (02:15)
[2019-05-12] MEDS ORDERED: dexAMETHasone 20 MG/5 ML VIAL IM ONE (02:15)
[2019-05-12] MEDS ORDERED: oxyCODONE /ACETAMINOPHEN 5-325MG TAB PO ONE (02:15)
--- NOTE | 2019-05-12 03:08 | Emergency Department Report ---
ED Extremity Problem HPI - General Chief complaint: Shoulder Injury Stated complaint: PAIN ON RIGHT ARM Source: patient Mode of arrival: Ambulatory Limitations: No Limitations - History of Present Illness Initial comments: Patient is a 54-year-old female with a history of hypertension and chronic osteoarthritis who presents to the ED with complaint of acute onset persistent severe nontraumatic right shoulder pain for the last 2 weeks, worse in the last 2 days. Patient states that she has not been able to perform any active range of motion with the right arm because of severe right shoulder pain. Patient denies chest pain, shortness of breath, dizziness, neck pain, headache, change in vision, cough, numbness and tingling or weakness of right arm, fall, heavy lifting or back pain. MD Complaint: extremity pain (right shoulder), joint paint (right shoulder) -: Sudden, week(s) (2) Location: right, upper extremity (shoulder) History of Same: Yes -: Yes arthralgia, No fever, No associated dyspnea, No associated chest pain Severity scale (0 -10): 9 Quality: aching, sharp Consistency: constant Improves with: nothing Worsens with: weight bearing, walking, exertion, palpation Associated Symptoms: denies other symptoms, arthralgias. denies: chest pain, shortness of breath, fever, myalgias, rash - Related Data Previous Rx's Medication Instructions Recorded Last Taken Type Famotidine 20 mg PO BID 10 Days #20 tablet 05/09/18 Unknown Rx HYDROcodone/APAP 5-325 [[place] 1 each PO Q6HR PRN #15 tablet 05/09/18 Unknown Rx 5/325] Chlorhexidine Mouthwash [Peridex] 15 ml MM BID #473 bottle 05/20/18 Unknown Rx clindamycin HCL [Clindamycin Oral] 75 mg PO TID #30 capsule 05/20/18 Unknown Rx guaiFENesin/CODEINE [Robitussin AC] 5 ml PO Q6H PRN #120 ml 05/20/18 Unknown Rx Griseofulvin Ultramicrosize 250 mg PO DAILY #14 tablet 07/16/18 Unknown Rx Ibuprofen [Motrin] 600 mg PO Q8H PRN #20 tablet 07/16/18 Unknown Rx Nystatin Oint [Mycostatin Oint] 1 applicatio TP BID #1 tube 07/16/18 Unknown Rx diphenhydrAMINE [Benadryl CAP] 25 mg PO Q6HR PRN #30 capsule 07/16/18 Unknown Rx Dicyclomine [Bentyl] 20 mg PO Q6H PRN #24 tablet 10/14/18 Unknown Rx Docusate Sodium [Colace CAP] 100 mg PO QHS PRN #30 capsule 10/14/18 Unknown Rx Ondansetron [Zofran Odt] 4 mg PO Q6HR PRN #15 tab.rapdis 10/14/18 Unknown Rx Ibuprofen [Motrin 800 MG tab] 800 mg PO Q8HR PRN #30 tablet 05/12/19 Unknown Rx predniSONE [Deltasone] 40 mg PO QDAY #10 tab 05/12/19 Unknown Rx tiZANidine [Zanaflex 4mg TAB] 4 mg PO Q8H PRN #21 tablet 05/12/19 Unknown Rx traMADoL [Ultram 50 MG tab] 50 mg PO Q6HR PRN #12 tablet 05/12/19 Unknown Rx Allergies Allergy/AdvReac Type Severity Reaction Status Date / Time Penicillins Allergy Hives Verified 05/09/18 11:05 Sulfa (Sulfonamide Allergy Hives Verified 05/09/18 11:05 Antibiotics) ED Review of Systems ROS: Stated complaint: PAIN ON RIGHT ARM Other details as noted in HPI Constitutional: denies: chills, fever Eyes: denies: eye pain, eye discharge, vision change ENT: denies: ear pain, throat pain Respiratory: denies: cough, shortness of breath, wheezing Cardiovascular: denies: chest pain, palpitations Endocrine: no symptoms reported Gastrointestinal: denies: abdominal pain, nausea, diarrhea Genitourinary: denies: urgency, dysuria, discharge Musculoskeletal: arthralgia (right shoulder pain), myalgia. denies: back pain, joint swelling Skin: denies: rash, lesions Neurological: denies: headache, weakness, paresthesias Psychiatric: denies: anxiety, depression Hematological/Lymphatic: denies: easy bleeding, easy bruising ED Past Medical Hx - Past Medical History Previous Medical History?: Yes Hx Hypertension: Yes - Surgical History Past Surgical History?: Yes Hx Cholecystectomy: Yes Additional Surgical History: C-sections X10. - Social History Smoking Status: Never Smoker Substance Use Type: None - Medications Home Medications: Home Medications Medication Instructions Recorded Confirmed Last Taken Type Famotidine 20 mg PO BID 10 Days #20 tablet 05/09/18 Unknown Rx HYDROcodone/APAP 5-325 [[place] 1 each PO Q6HR PRN #15 tablet 05/09/18 Unknown Rx 5/325] Chlorhexidine Mouthwash [Peridex] 15 ml MM BID #473 bottle 05/20/18 Unknown Rx clindamycin HCL [Clindamycin Oral] 75 mg PO TID #30 capsule 05/20/18 Unknown Rx guaiFENesin/CODEINE [Robitussin AC] 5 ml PO Q6H PRN #120 ml 05/20/18 Unknown Rx Griseofulvin Ultramicrosize 250 mg PO DAILY #14 tablet 07/16/18 Unknown Rx Ibuprofen [Motrin] 600 mg PO Q8H PRN #20 tablet 07/16/18 Unknown Rx Nystatin Oint [Mycostatin Oint] 1 applicatio TP BID #1 tube 07/16/18 Unknown Rx diphenhydrAMINE [Benadryl CAP] 25 mg PO Q6HR PRN #30 capsule 07/16/18 Unknown Rx Dicyclomine [Bentyl] 20 mg PO Q6H PRN #24 tablet 10/14/18 Unknown Rx Docusate Sodium [Colace CAP] 100 mg PO QHS PRN #30 capsule 10/14/18 Unknown Rx Ondansetron [Zofran Odt] 4 mg PO Q6HR PRN #15 tab.rapdis 10/14/18 Unknown Rx Ibuprofen [Motrin 800 MG tab] 800 mg PO Q8HR PRN #30 tablet 05/12/19 Unknown Rx predniSONE [Deltasone] 40 mg PO QDAY #10 tab 05/12/19 Unknown Rx tiZANidine [Zanaflex 4mg TAB] 4 mg PO Q8H PRN #21 tablet 05/12/19 Unknown Rx traMADoL [Ultram 50 MG tab] 50 mg PO Q6HR PRN #12 tablet 05/12/19 Unknown Rx ED Physical Exam - General Limitations: No Limitations General appearance: alert, in no apparent distress - Head Head exam: Present: atraumatic, normocephalic, normal inspection - Eye Eye exam: Present: normal appearance, PERRL, EOMI Pupils: Present: normal accommodation - ENT ENT exam: Present: normal exam, normal orophraynx, mucous membranes moist, TM's normal bilaterally, normal external ear exam - Neck Neck exam: Present: normal inspection, full ROM. Absent: tenderness - Respiratory Respiratory exam: Present: normal lung sounds bilaterally. Absent: respiratory distress, wheezes, rales, rhonchi, stridor, chest wall tenderness, accessory muscle use, decreased breath sounds - Cardiovascular Cardiovascular Exam: Present: regular rate, normal rhythm, normal heart sounds. Absent: systolic murmur, diastolic murmur, rubs, gallop - GI/Abdominal GI/Abdominal exam: Present: soft, normal bowel sounds. Absent: tenderness, guarding, hyperactive bowel sounds - Extremities Exam Extremities exam: Present: normal inspection, tenderness (Palpable right shoulder tenderness with limited range of motion due to pain), normal capillary refill. Absent: full ROM (Limited range of motion of right shoulder due to pain) - Back Exam Back exam: Present: normal inspection, full ROM. Absent: tenderness, CVA tenderness (R), CVA tenderness (L), muscle spasm, paraspinal tenderness, vertebral tenderness - Neurological Exam Neurological exam: Present: alert, oriented X3, CN II-XII intact, normal gait, reflexes normal - Psychiatric Psychiatric exam: Present: normal affect, normal mood - Skin Skin exam: Present: warm, dry, intact, normal color. Absent: rash ED Course Vital Signs 05/11/19 05/12/19 05/12/19 23:06 02:29 02:30 Temperature 97.8 F Pulse Rate 83 Respiratory 18 16 18 Rate Blood Pressure 179/80 O2 Sat by Pulse 100 Oximetry ED Medical Decision Making - Radiology Data Radiology results: report reviewed, image reviewed Findings [facility] [address] [place] [address] XRay Report Signed Patient: MARIA FERNANDA DOWNS R#: [id number] : 1965 Acct:[id number] Age/Sex: 54 / F ADM Date: 05/11/19 Loc: ED Attending Dr: Ordering Physician: JOSE M BANDA MD Date of Service: 05/11/19 Procedure(s): XR shoulder 2+V RT Accession Number(s): [id number] cc: ED MD VERONIKA Fluoro Time In Minutes: RIGHT SHOULDER, 3 VIEWS INDICATION / CLINICAL INFORMATION: right shoulder pain. COMPARISON: None available. FINDINGS: The distal portion of the right clavicle is absent. There is moderate degenerative change in the glenohumeral joint. I do not see fracture or dislocation. No soft tissue calcification is noted. IMPRESSION: 1. No acute fracture or dislocation. 2. Moderate degenerative changes are noted within the glenohumeral joint. 3. Absence of the distal right clavicle. Signer Name: Ruth Gonzales MD Signed: 05/12/2019 12:19 AM Workstation Name: [id number] Transcribed By: Dictated By: Ruth Gonzales MD Electronically Authenticated By: Ruth Gonzales MD Signed Date/Time: 05/12/19 0019 DD/ TD/TT: - Medical Decision Making This is a 54-year-old female who presented to the ED with complaint of acute onset persistent nontraumatic right shoulder pain for 2 weeks. In the ED, patient is alert and oriented x3 and is not in distress but appears to be in pain. Patient was treated for pain in the ED and right shoulder x-ray shows no acute fractures or subluxations but degenerative joint disease. On reevaluation, patient's pain is well controlled with medications. Patient symptoms are likely due to acute bursitis or acute exacerbation of her chronic degenerative joint disease. Patient was discharged home on pain medications and advised to follow-up with her primary care physician in 7 to 10 days for reevaluation. Patient was also advised to return to the ED immediately if symptoms get worse. - Differential Diagnosis shoulder bursitis; DJD; muscle strain; tendonitis Critical care attestation.: If time is entered above; I have spent that time in minutes in the direct care of this critically ill patient, excluding procedure time. ED Disposition Clinical Impression: Chronic osteoarthritis, Bursitis of right shoulder Right shoulder pain Qualifiers: Chronicity: acute Qualified Code(s): M25.511 - Pain in right shoulder Disposition: DC-01 TO HOME OR SELFCARE Is pt being admited?: No Does the pt Need Aspirin: No Condition: Stable Instructions: Shoulder Bursitis (ED), Osteoarthritis (ED), Muscle Strain (ED), Musculoskeletal Pain (ED) Additional Instructions: Shanell sntomas se deben a la osteoartritis del hombro derecho y a la bursitis. Por lo tanto, tome medicamentos con alimentos, enriqueta muchos lquidos y marvin un seguimiento con alexander mdico de atencin primaria en 7 a 10 pruitt para la reevaluacin. Regrese al servicio de urgencias de inmediato si los sntomas empeoran. Prescriptions: predniSONE [Deltasone] 40 mg PO QDAY #10 tab Ibuprofen [Motrin 800 MG tab] 800 mg PO Q8HR PRN #30 tablet PRN Reason: Pain , Severe (7-10) traMADoL [Ultram 50 MG tab] 50 mg PO Q6HR PRN #12 tablet PRN Reason: Pain tiZANidine [Zanaflex 4mg TAB] 4 mg PO Q8H PRN #21 tablet PRN Reason: Muscle Spasm Referrals: [facility] [Outside] - 7-10 days Time of Disposition: 03:07 Print Language: MACEDONIAN
[2019-05-12 04:43] VITALS: BP 152/82
== END 2019-05-12 03:23 | disposition home or self-care (01) ==
LOC: ED 22:36
DX: M19.011 Primary osteoarthritis, right shoulder (principal); I10 Essential (primary) hypertension
CPT/HCPCS: 73030; 96372; 99283; J1100; J1885; Q0162

== ENCOUNTER 2019-07-23 14:41 | Emergency (ER) | payer OTHER ==
[2019-07-23 14:53] VITALS: BP 141/81
[2019-07-23] MEDS ORDERED: HYDROcodone/ACETAMINOPHEN 5-325 MG TAB PO ONE (15:57)
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
== END 2019-07-23 17:45 | disposition home or self-care (01) ==
LOC: ED 14:41
DX: S20.212A Contusion of left front wall of thorax, initial encounter (principal); S60.222A Contusion of left hand, initial encounter; I10 Essential (primary) hypertension; Z90.49 Acquired absence of other specified parts of digestive tract; Z98.890 Other specified postprocedural states; Z79.899 Other long term (current) drug therapy; Z88.0 Allergy status to penicillin; Z88.2 Allergy status to sulfonamides; V49.59XA Passenger injured in collision with other motor vehicles in traffic accident, initial encounter; Y92.410 Unspecified street and highway as the place of occurrence of the external cause; Y93.89 Activity, other specified; Y99.8 Other external cause status
CPT/HCPCS: 99283

== ENCOUNTER 2021-09-30 22:06 | Emergency (ER) | payer SELFPAY ==
[2021-09-30 22:18] VITALS: BP 151/83
== END 2021-10-01 04:00 | disposition left against medical advice (07) ==
LOC: ED 22:06
DX: R10.9 Unspecified abdominal pain (principal); Z53.1 Procedure and treatment not carried out because of patient's decision for reasons of belief and group pressure